=== PATIENT | male | born 1950 | race American Indian/Alaskan Native ===

== ENCOUNTER 2018-08-22 13:11 | Emergency (ER) | payer BC ==
[2018-08-22 13:22] VITALS: BP 147/87; RESP 18; O2SAT 96
--- NOTE | 2018-08-22 13:49 | C.PDOC ---
History Of Present Illness 68 year old male presents to ED with complaint of Orozco catheter dysfunction since this morning. Patient also complains of decreased urinary output. Patient states he chronically has the Orozco due to BPH. He states that his current Orozco has been in place for 1 month. Patient admits to bladder fullness. He denies fever, nausea, vomiting, and hematuria. CO OROZCO DYSFUNCTION SINCE THIS MORNING. DECR UO. PS CHRONICALLY HAS OROZCO DUE TO BPH, CURRENT OROZCO IN PLACE X 1 MO. +BLADDER FULLNESS. NO FEVER, NV, HEMATURIA EXAM MILD DIST NONTOXIC ABD +MILD SUPRAPUB FULLNESS TEND OROZCO LEG PLACE IN PLACE REMAINDE RNEG Time Seen by Provider: 08/22/18 13:40 Chief Complaint (Nursing): Male Genitourinary History Per: Patient History/Exam Limitations: no limitations Onset/Duration Of Symptoms: Hrs Current Symptoms Are (Timing): Still Present Associated Symptoms: Urinary Symptoms (decreased urinary output and bladder fullness). denies: Fever, Nausea, Vomiting, Other (hematuria) Past Medical History Reviewed: Historical Data, Nursing Documentation, Vital Signs Vital Signs: Last Vital Signs Temp 98.5 F 08/22/18 13:17 Pulse 120 H 08/22/18 13:17 Resp 18 08/22/18 13:17 BP 147/87 08/22/18 13:17 Pulse Ox 96 08/22/18 13:17 - Medical History PMH: Benign Prostatic Hyperplasia, Fractures (left hip) Denies: Chronic Kidney Disease Surgical History: No Surg Hx - [facility] Procedures INSERT INDWELLING CATH (06/15/13) Family History: States: Unknown Family Hx - Social History Hx Tobacco Use: No Hx Alcohol Use: Yes Hx Substance Use: No - Immunization History Hx Tetanus Toxoid Vaccination: No Hx Influenza Vaccination: No Hx Pneumococcal Vaccination: No Review Of Systems Constitutional: Negative for: Fever, Chills, Weakness Gastrointestinal: Negative for: Nausea, Vomiting Genitourinary: Positive for: Other (decreased urinary output and bladder fulln ess). Negative for: Hematuria Neurological: Negative for: Weakness, Numbness, Dizziness Physical Exam - Physical Exam Appears: Non-toxic, Other (mild discomfort) Skin: Normal Color, Warm, Dry Head: Atraumatic, Normacephalic Neck: Normal ROM, Supple Chest: Symmetrical, No Deformity Cardiovascular: Rhythm Regular, No Murmur Respiratory: No Accessory Muscle Use Gastrointestinal/Abdominal: Tenderness (mild, suprapubic tenderness and fullness) Extremity: Capillary Refill (<2 seconds), Other (Orozco leg bag in place) Extremity: Bilateral: Atraumatic, Normal Color And Temperature Pulses: Left Radial: Normal, Right Radial: Normal Neurological/Psych: Oriented x3, Normal Speech, Normal Cognition ED Course And Treatment O2 Sat by Pulse Oximetry: 96 (RA) Progress Note: Patient given Cipro PO. Urine culture and UA ordered for patient. Urinary catheter inserted and leg bag applied to patient. Upon reassessment, patient is resting comfortably, in no distress, and is stable for discharge. Patient is advised to follow up with urologist. Patient is advised to return to ED if symptoms persist or worsen. Reevaluation Time: 13:49 Reassessment Condition: Unchanged (BLADDER SCAN >150 CC, OLD OROZCO IN PLACE.) Disposition Counseled Patient/Family Regarding: Diagnosis, Need For Followup - Disposition Referrals: [facility] [Outside] [facility] [Outside] [facility],UROLOGIST [Other] Disposition: HOME/ ROUTINE Disposition Time: 13:48 Condition: IMPROVED Instructions: How to Care for Your Orozco Catheter, Male Forms: [employer] ([place]) - Clinical Impression Clinical Impression: Urinary retention, Obstructed Orozco catheter - Scribe Statement The provider has reviewed the documentation as recorded by the Scribe (Irma Oneill) All medical record entries made by the Scribe were at my direction and per sonally dictated by me. I have reviewed the chart and agree that the record accurately reflects my personal performance of the history, physical exam, medical decision making, and the department course for this patient. I have also personally directed, reviewed, and agree with the discharge instructions and disposition.
[2018-08-22 14:17] LABS: URINE BACTERIA FEW (<OCC); URINE BILIRUBIN NEGATIVE (NEGATIVE); URINE BLOOD 1+ (NEGATIVE); URINE CLARITY Turbid (Clear); URINE COLOR Yellow (YELLOW); URINE GLUCOSE (UA) NORMAL (Normal); URINE LEUKOCYTE ESTERASE 3+ Leu/uL (Negative); URINE PROTEIN 3+ mg/dL (NEGATIVE); URINE UROBILINOGEN NORMAL mg/dL (0.2-1.0); WBC CLUMPS OCC /hpf
[2018-08-22 14:37] VITALS: PULSE 96; TEMP 98.6
== END 2018-08-22 14:31 | disposition home or self-care (01) ==
LOC: C.ER 13:11
DX: R33.9 Retention of urine, unspecified (principal); T83.098A Other mechanical complication of other urinary catheter, initial encounter; Y84.8 Other medical procedures as the cause of abnormal reaction of the patient, or of later complication, without mention of misadventure at the time of the procedure; Y92.89 Other specified places as the place of occurrence of the external cause